=== PATIENT | female | born 1980 | race Two or more races ===

== ENCOUNTER 2023-02-18 11:31 | Emergency (ER) | payer OTHER ==
[~2023-02-18] VITALS: Ht 157.5 cm; Wt 45.4 kg
[2023-02-18] MEDS ORDERED: BACTRIM DS TAB1 EACH PO (17:42)
== END 2023-02-18 18:43 | disposition home or self-care (01) ==
LOC: ER 11:31
DX: N93.8 Other specified abnormal uterine and vaginal bleeding (principal)